=== PATIENT | female | born 1970 | race American Indian/Alaskan Native ===

== ENCOUNTER 2021-04-30 23:57 | Emergency (ER) | payer MEDICARE ==
--- NOTE | 2021-05-01 00:31 | Emergency Department Report ---
ED Psych HPI - General Chief Complaint: Psych Stated Complaint: SUICIDAL TENDENCIES Time Seen by Provider: 05/01/21 00:14 Source: patient, family Mode of arrival: Ambulatory Limitations: No Limitations - History of Present Illness Initial Comments: Chief complaint: "Just kill me. I am suicidal. Just take my heart and give it away." HPI: This is a 50-year-old female with history of schizoaffective disorder bipolar type who presents with suicidal ideation. She states that she wants to in order to be with her mother. She does not take any psychotropic medications. She was brought to the emergency department by a friend. According to electronic medical record, in February, patient was admitted to our geriatric mental health unit. She was prescribed Effexor lithium Vistaril Cogentin. Complaint: suicidal ideation -: days(s) (Several days) Associated Psychiatric Symptoms: suicidal ideation History of same: Yes Quality: constant Improves With: none Worsens With: none Context: not taking psychiatric Associated Symptoms: denies other symptoms Treatments Prior to Arrival: none If Self Harm: admits thoughts of - Related Data Home Medications Medication Instructions Recorded Confirmed Last Taken No Known Home Medications [No 05/01/21 05/01/21 Unknown Reported Home Medications] Allergies Allergy/AdvReac Type Severity Reaction Status Date / Time aspirin Allergy Unknown Verified 05/01/21 17:07 bupropion HCl Allergy Shortness Verified 05/01/21 17:07 [From Wellbutrin] of Breath divalproex sodium Allergy Shortness Verified 05/01/21 17:07 [From Depakote] of Breath doxorubicin Allergy Unknown Verified 05/01/21 17:07 duloxetine HCl Allergy Shortness Verified 05/01/21 17:07 [From Cymbalta] of Breath haloperidol [From Haldol] Allergy Shortness Verified 05/01/21 17:07 of Breath haloperidol lactate Allergy Shortness Verified 05/01/21 17:07 [From Haldol] of Breath hydrocodone Allergy Unknown Verified 05/01/21 17:07 lithium [[place]] Allergy Anaphylaxis Verified 05/01/21 17:07 lorazepam [From Ativan] Allergy Shortness Verified 05/01/21 17:07 of Breath olanzapine [From Zyprexa] Allergy Bleeding Verified 01/02/13 21:25 paroxetine HCl [From Paxil] Allergy Shortness Verified 01/02/13 21:25 of Breath Penicillins Allergy Unknown Unverified 03/03/21 18:07 trazodone Allergy Shortness Verified 01/02/13 21:25 of Breath ED Review of Systems ROS: Stated complaint: SUICIDAL TENDENCIES Other details as noted in HPI Comment: All other systems reviewed and negative Constitutional: denies: chills, fever, malaise Respiratory: denies: cough, shortness of breath Cardiovascular: denies: chest pain Gastrointestinal: denies: abdominal pain, nausea, vomiting Psychiatric: depression, suicidal thoughts ED Past Medical Hx - Past Medical History Previous Medical History?: Yes Hx Diabetes: No Hx Renal Disease: No Hx Arthritis: No Hx Seizures: No Hx Psychiatric Treatment: Yes (Schizoaffective disorder bipolar type) Hx COPD: No Hx Dementia: No Additional medical history: Suicidal attempts - Surgical History Past Surgical History?: Yes Hx Cholecystectomy: No Hx Appendectomy: No Additional Surgical History: "Cancer" - Social History Smoking Status: Never Smoker Substance Use Type: None - Medications Home Medications: Home Medications Medication Instructions Recorded Confirmed Last Taken Type No Known Home Medications [No 05/01/21 05/01/21 Unknown History Reported Home Medications] ED Physical Exam - General Limitations: No Limitations General appearance: alert, in no apparent distress - Head Head exam: Present: atraumatic, normocephalic - Eye Eye exam: Present: normal appearance - ENT ENT exam: Present: mucous membranes moist - Neck Neck exam: Present: normal inspection, full ROM - Respiratory Respiratory exam: Present: normal lung sounds bilaterally. Absent: respiratory distress, wheezes, rales, rhonchi - Cardiovascular Cardiovascular Exam: Present: regular rate, normal rhythm, normal heart sounds. Absent: systolic murmur, diastolic murmur, rubs, gallop - GI/Abdominal GI/Abdominal exam: Present: soft, normal bowel sounds. Absent: distended, tenderness, guarding, rebound - Extremities Exam Extremities exam: Present: normal inspection - Back Exam Back exam: Present: normal inspection - Neurological Exam Neurological exam: Present: alert, oriented X3 - Psychiatric Psychiatric exam: Present: agitated, flat affect, suicidal ideation - Skin Skin exam: Present: warm, dry, intact, normal color. Absent: rash ED Course Vital Signs 05/01/21 05/01/21 05/01/21 00:07 01:17 10:35 Temperature 98.2 F Pulse Rate 61 74 Respiratory 18 18 Rate Blood Pressure 180/98 117/54 Blood Pressure [Right] O2 Sat by Pulse 100 97 Oximetry 05/01/21 05/01/21 10:36 21:12 Temperature 98.1 F 97.3 F L Pulse Rate 110 H 68 Respiratory 18 18 Rate Blood Pressure Blood Pressure 117/54 138/89 [Right] O2 Sat by Pulse 100 99 Oximetry ED Medical Decision Making - Lab Data Result diagrams: 05/01/21 00:37 05/01/21 00:37 - Medical Decision Making This is a 50-year-old female with history of schizoaffective disorder bipolar type who presents with suicidal ideation. Patient is quite agitated. I suspect patient is experiencing manic episode. When asked about plan to kill herself, she is evasive. 1013 form completed. Involuntary hold indicated. Patient presents with poor insight. I am unable to ensure her safety. She is admittedly noncompliant with medication. Blood pressure is elevated. Unclear if this is a new diagnosis for patient. I have ordered valsartan for morning. Patient is medically clear for psychiatric care. I have reviewed all labs including CBC chemistry serum toxicology screen all within normal limits. Han[place]i level 0.1. Suspect medication noncompliance. hCG is negative. Patient is medically clear for psychiatric care. Critical care attestation.: If time is entered above; I have spent that time in minutes in the direct care of this critically ill patient, excluding procedure time. ED Disposition Clinical Impression: Schizoaffective disorder, Homelessness Disposition: 01 HOME / SELF CARE / HOMELESS Is pt being admited?: No Does the pt Need Aspirin: No Condition: Good Additional Instructions: Please follow-up with the outpatient resources that have been provided to the patient. Patient may present herself to a local homeless correction. Recommend follow-up with your primary care doctor within the next week. Recommend follow-up with a psychiatry specialist or mental health specialist within the next week. Please remain compliant with outpatient medications. Please return to the emergency room right away with new pain, worsened pain, migration of pain, projectile vomiting, change in mental status, confusion, inability tolerate liquid feeds, new, worsened or different symptoms not present on the initial emergency room evaluation Referrals: AIMEE LOPEZ [Other] - 3-5 Days [facility] [Outside] - 3-5 Days [facility] [Outside] - 3-5 Days
[2021-05-01 00:53] LABS: Basophils % (Auto) 0.4 % (0.0-1.8); Eosinophils # (Auto) 0.1 K/mm3 (0.0-0.4); Eosinophils % (Auto) 1.8 % (0.0-4.3); Hemoglobin 12.6 gm/dl (10.1-14.3); Lymphocytes # (Auto) 3.2 K/mm3 (1.2-5.4); Lymphocytes % (Auto) 39.2 % (13.4-35.0); Mean Corpuscular HGB Conc 32 % (30-34); Mean Corpuscular Volume 90 fl (79-97); Monocytes # (Auto) 0.7 K/mm3 (0.0-0.8); Monocytes % (Auto) 8.1 % (0.0-7.3); Platelet Count 213 K/mm3 (140-440); Red Blood Count 4.32 M/mm3 (3.65-5.03); Red Cell Distribution Width 15.1 % (13.2-15.2)
[2021-05-01 01:12] LABS: Blood Urea Nitrogen 13 mg/dL (7-17); Calcium 8.6 mg/dL (8.4-10.2); Hemolysis Index 8
[2021-05-01 01:24] LABS: BUN/Creatinine Ratio 19
[2021-05-01 06:08] LABS: Bacteria,Urine 1+ /HPF (Negative); Bilirubin,Urine NEG (Negative); Blood,Urine NEG (Negative); Color,Urine Yellow (Yellow); Hyaline Casts,Urine 1 /LPF; Mucus,Urine FEW /HPF; Protein,Urine <15 mg/dL mg/dL (Negative); Urobilinogen,Urine < 2.0 mg/dL (<2.0)
[2021-05-01 06:13] LABS: Amphetamine Screen,Urine PRESUMPTIVE NEGATIVE; Benzodiazepines Screen,Urine PRESUMPTIVE NEGATIVE; Cannabinoid Screen,Urine PRESUMPTIVE NEGATIVE; Cocaine Screen,Urine PRESUMPTIVE NEGATIVE; Methadone Screen,Urine PRESUMPTIVE NEGATIVE; Opiate Screen,Urine PRESUMPTIVE NEGATIVE
[2021-05-01] MEDS ORDERED: VALSARTAN 40 MG TAB PO SCH (10:00)
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
--- NOTE | 2021-05-01 12:16 | Event Note ---
Date: 05/01/21 The patient was evaluated in the emergency department for symptoms described in the history of present illness. He/she was evaluated in the context of the global COVID-19 pandemic, which necessitated consideration that the patient might be at risk for infection with the virus that causes COVID-19. Institutional protocols and algorithms that pertain to the evaluation of patients at risk for COVID-19 are in a state of rapid change based on information released by regulatory bodies including the CDC and federal and state organizations. These policies and algorithms were followed during the patient's care in the emergency department. Please note that these policies, procedures and recommendations changed on a rapid basis. Laboratory studies, vital signs, nursing documentation, ER documentation, and psychiatric documentation are reviewed and appreciated. Nursing team reports no acute events this morning or concerns. The patient is awake and not in any acute distress. Nursing team endorses no acute concerns this morning. Patient is documented to be not homicidal, not suicidal, alert and oriented x3, and of sound mind. It appears that she is presenting primarily because of her homelessness. Elevated blood pressures reviewed and appreciated. It does not appear to be acutely symptomatic or decompensated at this time. Please reference the [employer] clinical policy on asymptomatic elevated blood pressure/hypertension This patient does not exhibit the ability to care for herself independently. A case management consultation is requested by the psychiatry team, and the patient can be given a list of homeless fdc resources, and the case management team may follow-up this patient to what ever homeless fdc she presents to, or present here with further resources while in the waiting room. The patient does not require further emergency or psychiatric medical care at this time The patient was deemed medically suitable for psychiatric and social disposition during her initial ER evaluation
[2021-05-02 05:23] VITALS: BP 140/79
== END 2021-05-01 13:43 | disposition home or self-care (01) ==
LOC: ED 23:57
DX: F23 Brief psychotic disorder (principal); Z59.00 Homelessness unspecified; Z88.6 Allergy status to analgesic agent; Z88.8 Allergy status to other drugs, medicaments and biological substances; Z88.0 Allergy status to penicillin; Z88.5 Allergy status to narcotic agent
CPT/HCPCS: 36415; 80048; 80178; 80307; 80320; 81001; 84703; 85025; 99283; G0480

== ENCOUNTER 2021-05-01 14:52 | Emergency (ER) | payer MEDICARE ==
--- NOTE | 2021-05-01 16:07 | Emergency Department Report ---
HPI - General Chief Complaint: Psych Time Seen by Provider: 05/01/21 16:01 - HPI HPI: 50-year-old female with history of schizoaffective disorder presents complaining of "homelessness." When I inquire further, the patient states "I want to the right way" she says that she has cancer and will anyways. When asked what kind of cancer she has she speaks gibberish. She denies HI. She denies auditory or visual hallucinations. She denies physical symptoms or complaints of any kind. Further details of the HPI are highly limited due to the patient's current clinical condition. ED Past Medical Hx - Past Medical History Previous Medical History?: Yes Hx Diabetes: No Hx Renal Disease: No Hx Arthritis: No Hx Seizures: No Hx Psychiatric Treatment: Yes (Schizoaffective disorder bipolar type) Hx COPD: No Hx Dementia: No Additional medical history: Suicidal attempts - Surgical History Past Surgical History?: Yes Hx Cholecystectomy: No Hx Appendectomy: No Additional Surgical History: "Cancer" - Social History Smoking Status: Never Smoker Substance Use Type: None - Medications Home Medications: Home Medications Medication Instructions Recorded Confirmed Last Taken Type No Known Home Medications [No 05/01/21 05/03/21 Unknown History Reported Home Medications] ED Review of Systems ROS: Stated complaint: SUICIDAL Other details as noted in HPI Comment: All other systems reviewed and negative Constitutional: denies: chills, fever Eyes: denies: eye pain, vision change ENT: denies: throat pain, congestion Respiratory: denies: cough, shortness of breath Cardiovascular: denies: chest pain, palpitations Gastrointestinal: denies: abdominal pain, nausea, vomiting Genitourinary: denies: dysuria, frequency Musculoskeletal: denies: back pain, joint swelling Skin: denies: rash, lesions Neurological: denies: headache, weakness, numbness Psychiatric: suicidal thoughts. denies: auditory hallucinations, visual hallucinations, homicidal thoughts Physical Exam - Physical Exam Vital Signs: Vital Signs 05/01/21 15:12 Temperature 98.7 F Pulse Rate 62 Respiratory 18 Rate Blood Pressure 163/95 [Right] O2 Sat by Pulse 100 Oximetry Physical Exam: GENERAL: Well developed and well nourished. Disheveled. HEAD: Normocephalic. No obvious signs of trauma. ENT: Moist mucous membranes. EYES: Extraocular movements are intact. Pupils are equal round and reactive to light bilaterally NECK: Supple. Full ROM is intact. Trachea is midline. LUNGS: Nonlabored breathing. Equal chest rise bilaterally. Clear to auscultation bilaterally. CARDIOVASCULAR: Regular rate and rhythm. No murmurs or rubs. VASCULAR: Cap refill < 2 seconds ABDOMEN: Abdomen is slightly distended but soft. There is no significant tenderness, guarding or rebound. SKIN: Skin is warm and dry NEURO: Patient is awake, alert, and oriented. Fine tremor of distal extremities. 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 No focal deficits. Normal motor and sensory exam throughout. Normal speech. MUSCULOSKELETAL: No obvious deformities. No significant tenderness. Normal ROM throughout. BACK/SPINE: No midline tenderness or step-offs of the C/T/L spine. No costovertebral angle tenderness. ED Course Vital Signs 05/01/21 15:12 Temperature 98.7 F Pulse Rate 62 Respiratory 18 Rate Blood Pressure 163/95 [Right] O2 Sat by Pulse 100 Oximetry ED Medical Decision Making - Lab Data Result diagrams: 05/01/21 17:28 05/01/21 17:28 Lab Results 05/01/21 05/01/21 05/01/21 Range/Units 17:13 17:13 17:28 WBC 7.5 (4.5-11.0) K/mm3 RBC 4.58 (3.65-5.03) M/mm3 Hgb 13.0 (10.1-14.3) gm/dl Hct 41.1 (30.3-42.9) % MCV 90 (79-97) fl MCH 29 (28-32) pg MCHC 32 (30-34) % RDW 15.4 H (13.2-15.2) % Plt Count 210 (140-440) K/mm3 Lymph % (Auto) 29.6 (13.4-35.0) % Dickey % (Auto) 6.6 (0.0-7.3) % Eos % (Auto) 1.2 (0.0-4.3) % Baso % (Auto) 1.8 (0.0-1.8) % Lymph # (Auto) 2.2 (1.2-5.4) K/mm3 Dickey # (Auto) 0.5 (0.0-0.8) K/mm3 Eos # (Auto) 0.1 (0.0-0.4) K/mm3 Baso # (Auto) 0.1 (0.0-0.1) K/mm3 Seg Neutrophils % 60.8 (40.0-70.0) % Seg Neutrophils # 4.5 (1.8-7.7) K/mm3 Sodium (137-145) mmol/L Potassium (3.6-5.0) mmol/L Chloride (98-107) mmol/L Carbon Dioxide (22-30) mmol/L Anion Gap mmol/L BUN (7-17) mg/dL Creatinine (0.6-1.2) mg/dL Estimated GFR ml/min BUN/Creatinine Ratio % Glucose (65-100) mg/dL Calcium (8.4-10.2) mg/dL HCG, Qual (Negative) Urine Color Yellow (Yellow) Urine Turbidity Clear (Clear) Urine pH 5.0 (5.0-7.0) Ur Specific [place] 1.023 (1.003-1.030) Urine Protein <15 mg/dl (Negative) mg/dL Urine Glucose (UA) Neg (Negative) mg/dL Urine Ketones Neg (Negative) mg/dL Urine Blood Neg (Negative) Urine Nitrite Neg (Negative) Urine Bilirubin Neg (Negative) Urine Urobilinogen 2.0 (<2.0) mg/dL Ur Leukocyte Esterase Neg (Negative) Urine WBC (Auto) 1.0 (0.0-6.0) /HPF Urine RBC (Auto) < 1.0 (0.0-6.0) /HPF U Epithel Cells (Auto) 1.0 (0-13.0) /HPF Urine Mucus Few /HPF Salicylates (2.8-20.0) mg/dL Urine Opiates Screen Negative Urine Methadone Screen Negative Ur Barbiturates Screen Negative Ur Phencyclidine Scrn Negative Ur Amphetamines Screen Negative U Benzodiazepines Scrn Negative Echo (0.0-1.2) mmol/L Urine Cocaine Screen Negative U Marijuana (THC) Screen Negative Drugs of Abuse Note Disclamer Plasma/Serum Alcohol (0-0.07) % Lab Results 05/01/21 05/01/21 05/01/21 Range/Units 17:13 17:13 17:28 WBC 7.5 (4.5-11.0) K/mm3 RBC 4.58 (3.65-5.03) M/mm3 Hgb 13.0 (10.1-14.3) gm/dl Hct 41.1 (30.3-42.9) % MCV 90 (79-97) fl MCH 29 (28-32) pg MCHC 32 (30-34) % RDW 15.4 H (13.2-15.2) % Plt Count 210 (140-440) K/mm3 Lymph % (Auto) 29.6 (13.4-35.0) % Dickey % (Auto) 6.6 (0.0-7.3) % Eos % (Auto) 1.2 (0.0-4.3) % Baso % (Auto) 1.8 (0.0-1.8) % Lymph # (Auto) 2.2 (1.2-5.4) K/mm3 Dickey # (Auto) 0.5 (0.0-0.8) K/mm3 Eos # (Auto) 0.1 (0.0-0.4) K/mm3 Baso # (Auto) 0.1 (0.0-0.1) K/mm3 Seg Neutrophils % 60.8 (40.0-70.0) % Seg Neutrophils # 4.5 (1.8-7.7) K/mm3 Sodium (137-145) mmol/L Potassium (3.6-5.0) mmol/L Chloride (98-107) mmol/L Carbon Dioxide (22-30) mmol/L Anion Gap mmol/L BUN (7-17) mg/dL Creatinine (0.6-1.2) mg/dL Estimated GFR ml/min BUN/Creatinine Ratio % Glucose (65-100) mg/dL Calcium (8.4-10.2) mg/dL HCG, Qual (Negative) Urine Color Yellow (Yellow) Urine Turbidity Clear (Clear) Urine pH 5.0 (5.0-7.0) Ur Specific [place] 1.023 (1.003-1.030) Urine Protein <15 mg/dl (Negative) mg/dL Urine Glucose (UA) Neg (Negative) mg/dL Urine Ketones Neg (Negative) mg/dL Urine Blood Neg (Negative) Urine Nitrite Neg (Negative) Urine Bilirubin Neg (Negative) Urine Urobilinogen 2.0 (<2.0) mg/dL Ur Leukocyte Esterase Neg (Negative) Urine WBC (Auto) 1.0 (0.0-6.0) /HPF Urine RBC (Auto) < 1.0 (0.0-6.0) /HPF U Epithel Cells (Auto) 1.0 (0-13.0) /HPF Urine Mucus Few /HPF Salicylates (2.8-20.0) mg/dL Urine Opiates Screen Negative Urine Methadone Screen Negative Acetaminophen (10.0-30.0) ug/mL Ur Barbiturates Screen Negative Ur Phencyclidine Scrn Negative Ur Amphetamines Screen Negative U Benzodiazepines Scrn Negative Echo (0.0-1.2) mmol/L Urine Cocaine Screen Negative U Marijuana (THC) Screen Negative Drugs of Abuse Note Disclamer Plasma/Serum Alcohol (0-0.07) % 05/01/21 05/01/21 05/01/21 Range/Units 17:28 17:28 17:28 WBC (4.5-11.0) K/mm3 RBC (3.65-5.03) M/mm3 Hgb (10.1-14.3) gm/dl Hct (30.3-42.9) % MCV (79-97) fl MCH (28-32) pg MCHC (30-34) % RDW (13.2-15.2) % Plt Count (140-440) K/mm3 Lymph % (Auto) (13.4-35.0) % Dickey % (Auto) (0.0-7.3) % Eos % (Auto) (0.0-4.3) % Baso % (Auto) (0.0-1.8) % Lymph # (Auto) (1.2-5.4) K/mm3 Dickey # (Auto) (0.0-0.8) K/mm3 Eos # (Auto) (0.0-0.4) K/mm3 Baso # (Auto) (0.0-0.1) K/mm3 Seg Neutrophils % (40.0-70.0) % Seg Neutrophils # (1.8-7.7) K/mm3 Sodium 142 (137-145) mmol/L Potassium 4.1 (3.6-5.0) mmol/L Chloride 106.6 (98-107) mmol/L Carbon Dioxide 24 (22-30) mmol/L Anion Gap 16 mmol/L BUN 12 (7-17) mg/dL Creatinine 0.8 (0.6-1.2) mg/dL Estimated GFR > 60 ml/min BUN/Creatinine Ratio 15 % Glucose 127 H (65-100) mg/dL Calcium 9.0 (8.4-10.2) mg/dL HCG, Qual (Negative) Urine Color (Yellow) Urine Turbidity (Clear) Urine pH (5.0-7.0) Ur Specific [place] (1.003-1.030) Urine Protein (Negative) mg/dL Urine Glucose (UA) (Negative) mg/dL Urine Ketones (Negative) mg/dL Urine Blood (Negative) Urine Nitrite (Negative) Urine Bilirubin (Negative) Urine Urobilinogen (<2.0) mg/dL Ur Leukocyte Esterase (Negative) Urine WBC (Auto) (0.0-6.0) /HPF Urine RBC (Auto) (0.0-6.0) /HPF U Epithel Cells (Auto) (0-13.0) /HPF Urine Mucus /HPF Salicylates < 0.3 L (2.8-20.0) mg/dL Urine Opiates Screen Urine Methadone Screen Acetaminophen 5.0 L (10.0-30.0) ug/mL Ur Barbiturates Screen Ur Phencyclidine Scrn Ur Amphetamines Screen U Benzodiazepines Scrn Echo 0.1 (0.0-1.2) mmol/L Urine Cocaine Screen U Marijuana (THC) Screen Drugs of Abuse Note Plasma/Serum Alcohol (0-0.07) % 05/01/21 05/01/21 Range/Units 17:28 17:28 WBC (4.5-11.0) K/mm3 RBC (3.65-5.03) M/mm3 Hgb (10.1-14.3) gm/dl Hct (30.3-42.9) % MCV (79-97) fl MCH (28-32) pg MCHC (30-34) % RDW (13.2-15.2) % Plt Count (140-440) K/mm3 Lymph % (Auto) (13.4-35.0) % Dickey % (Auto) (0.0-7.3) % Eos % (Auto) (0.0-4.3) % Baso % (Auto) (0.0-1.8) % Lymph # (Auto) (1.2-5.4) K/mm3 Dickey # (Auto) (0.0-0.8) K/mm3 Eos # (Auto) (0.0-0.4) K/mm3 Baso # (Auto) (0.0-0.1) K/mm3 Seg Neutrophils % (40.0-70.0) % Seg Neutrophils # (1.8-7.7) K/mm3 Sodium (137-145) mmol/L Potassium (3.6-5.0) mmol/L Chloride (98-107) mmol/L Carbon Dioxide (22-30) mmol/L Anion Gap mmol/L BUN (7-17) mg/dL Creatinine (0.6-1.2) mg/dL Estimated GFR ml/min BUN/Creatinine Ratio % Glucose (65-100) mg/dL Calcium (8.4-10.2) mg/dL HCG, Qual Negative (Negative) Urine Color (Yellow) Urine Turbidity (Clear) Urine pH (5.0-7.0) Ur Specific [place] (1.003-1.030) Urine Protein (Negative) mg/dL Urine Glucose (UA) (Negative) mg/dL Urine Ketones (Negative) mg/dL Urine Blood (Negative) Urine Nitrite (Negative) Urine Bilirubin (Negative) Urine Urobilinogen (<2.0) mg/dL Ur Leukocyte Esterase (Negative) Urine WBC (Auto) (0.0-6.0) /HPF Urine RBC (Auto) (0.0-6.0) /HPF U Epithel Cells (Auto) (0-13.0) /HPF Urine Mucus /HPF Salicylates (2.8-20.0) mg/dL Urine Opiates Screen Urine Methadone Screen Acetaminophen (10.0-30.0) ug/mL Ur Barbiturates Screen Ur Phencyclidine Scrn Ur Amphetamines Screen U Benzodiazepines Scrn Echo (0.0-1.2) mmol/L Urine Cocaine Screen U Marijuana (THC) Screen Drugs of Abuse Note Plasma/Serum Alcohol < 0.01 (0-0.07) % - Medical Decision Making 50-year-old female with schizoaffective disorder here with suicidal ideation and acute psychosis. 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 She is back again with SI and signs of psychosis. For this reason I have ordered a 1013 and have signed the form which is on the chart. We will send a full set of medical clearance labs including lithium level despite the fact she has had labs this morning given that she was discharged and has now come back. We will asked that the patient be reevaluated by the psychi atry/mental health team to determine proper disposition. Patient's labs are unchanged from earlier today. She is medically cleared for psychiatric evaluation and placement as deemed necessary. Patient discharged to [facility] Critical care attestation.: If time is entered above; I have spent that time in minutes in the direct care of this critically ill patient, excluding procedure time. ED Disposition Clinical Impression: Homelessness, Schizoaffective disorder, Depression with suicidal ideation Disposition: [address] [place] [address] Is pt being admited?: No Condition: Good Additional Instructions: Please continue current outpatient medications. Please follow-up with your outpatient primary care doctor within the next week. Please follow-up with your outpatient psychiatrist within the next day. Suspect that the patient is malingering for the purposes of secondary gain, housing and intermediate. Please return to the emergency room right away with new pain, worsened pain, migration of pain, projectile vomiting, change in mental status, confusion, inability tolerate liquid feeds, new, worsened or different symptoms not present on the initial emergency room evaluation Referrals: [facility] [Outside] - 3-5 Days [facility] [Outside] - 3-5 Days
[2021-05-01 17:39] LABS: Bilirubin,Urine NEG (Negative); Blood,Urine NEG (Negative); Color,Urine Yellow (Yellow); Mucus,Urine FEW /HPF; Protein,Urine <15 mg/dL mg/dL (Negative); RBC,Urine < 1.0 /HPF (0.0-6.0)
[2021-05-01 17:47] LABS: Amphetamine Screen,Urine Negative; Benzodiazepines Screen,Urine Negative; Cannabinoid Screen,Urine Negative; Cocaine Screen,Urine Negative; Methadone Screen,Urine Negative; Opiate Screen,Urine Negative
[2021-05-01 18:27] LABS: Basophils # (Auto) 0.1 K/mm3 (0.0-0.1); Basophils % (Auto) 1.8 % (0.0-1.8); Eosinophils # (Auto) 0.1 K/mm3 (0.0-0.4); Eosinophils % (Auto) 1.2 % (0.0-4.3); Hematocrit 41.1 % (30.3-42.9); Lymphocytes # (Auto) 2.2 K/mm3 (1.2-5.4); Lymphocytes % (Auto) 29.6 % (13.4-35.0); Mean Corpuscular HGB Conc 32 % (30-34); Mean Corpuscular Volume 90 fl (79-97); Monocytes # (Auto) 0.5 K/mm3 (0.0-0.8); Monocytes % (Auto) 6.6 % (0.0-7.3); Platelet Count 210 K/mm3 (140-440); Red Blood Count 4.58 M/mm3 (3.65-5.03); Red Cell Distribution Width 15.4 % (13.2-15.2)
[2021-05-01 18:38] LABS: BUN/Creatinine Ratio 15; Blood Urea Nitrogen 12 mg/dL (7-17); Hemolysis Index 8
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
[2021-05-02 11:12] VITALS: BP 165/95
[2021-05-02] MEDS ORDERED: diphenhydrAMINE 25 MG CAP PO PRN (11:55)
[2021-05-02] MEDS ORDERED: LORazepam 2 MG/ML VIAL IM PRN (11:55)
[2021-05-02] MEDS ORDERED: HALOPERIDOL LACTATE 5 MG/1 ML INJ IM PRN (11:55)
[2021-05-02] MEDS ORDERED: ZIPRASIDONE MESYLATE 20 MG VIAL IM PRN (11:55)
[2021-05-02] MEDS ORDERED: ACETAMINOPHEN 325 MG TAB PO PRN (11:55)
--- NOTE | 2021-05-02 11:57 | Event Note ---
Date: 05/02/21 The patient was evaluated in the emergency department for symptoms described in the history of present illness. He/she was evaluated in the context of the global COVID-19 pandemic, which necessitated consideration that the patient might be at risk for infection with the virus that causes COVID-19. Institutional protocols and algorithms that pertain to the evaluation of patients at risk for COVID-19 are in a state of rapid change based on information released by regulatory bodies including the CDC and federal and state organizations. These policies and algorithms were followed during the patient's care in the emergency department. Please note that these policies, procedures and recommendations changed on a rapid basis. Laboratory studies, vital signs, nursing documentation, ER documentation, and psychiatric documentation are reviewed and appreciated. Nursing team reports no acute events this morning or concerns. The patient is awake and ambulating and does not appear to be in any acute distress. The patient denies physical pain to myself. The patient was deemed medically suitable for psychiatric disposition and placement during her initial ER evaluation. The patient continues to remain medically suitable for psychiatric placement and disposition. sHe is currently pending psychiatric placement. Of note, both today and yesterday, this patient has presented as alert and oriented x3, complaining of homelessness. Patient is patient on involuntary psychiatric admission may serve to reinforce maladaptive coping mechanisms and behaviors, such as presented to the emergency room for the purposes of seeking detention and food, when faced with difficult and adverse situations. However, I will defer to the psychiatric team to further delineate this patients report of psychiatric symptoms versus malingering. Vital Signs 05/01/21 05/01/21 05/02/21 15:12 16:19 05:43 Temperature 98.7 F Pulse Rate 62 Respiratory 18 16 Rate Blood Pressure 163/95 [Right] O2 Sat by Pulse 100 100 100 Oximetry 05/02/21 11:11 Temperature 98.2 F Pulse Rate 70 Respiratory 20 Rate Blood Pressure 165/95 [Right] O2 Sat by Pulse 98 Oximetry Lab Results 05/01/21 05/01/21 05/01/21 Range/Units 17:13 17:13 17:28 WBC 7.5 (4.5-11.0) K/mm3 RBC 4.58 (3.65-5.03) M/mm3 Hgb 13.0 (10.1-14.3) gm/dl Hct 41.1 (30.3-42.9) % MCV 90 (79-97) fl MCH 29 (28-32) pg MCHC 32 (30-34) % RDW 15.4 H (13.2-15.2) % Plt Count 210 (140-440) K/mm3 Lymph % (Auto) 29.6 (13.4-35.0) % [place] % (Auto) 6.6 (0.0-7.3) % Eos % (Auto) 1.2 (0.0-4.3) % Baso % (Auto) 1.8 (0.0-1.8) % Lymph # (Auto) 2.2 (1.2-5.4) K/mm3 [place] # (Auto) 0.5 (0.0-0.8) K/mm3 Eos # (Auto) 0.1 (0.0-0.4) K/mm3 Baso # (Auto) 0.1 (0.0-0.1) K/mm3 Seg Neutrophils % 60.8 (40.0-70.0) % Seg Neutrophils # 4.5 (1.8-7.7) K/mm3 Sodium (137-145) mmol/L Potassium (3.6-5.0) mmol/L Chloride (98-107) mmol/L Carbon Dioxide (22-30) mmol/L Anion Gap mmol/L BUN (7-17) mg/dL Creatinine (0.6-1.2) mg/dL Estimated GFR ml/min BUN/Creatinine Ratio % Glucose (65-100) mg/dL Calcium (8.4-10.2) mg/dL HCG, Qual (Negative) Urine Color Yellow (Yellow) Urine Turbidity Clear (Clear) Urine pH 5.0 (5.0-7.0) Ur Specific [place] 1.023 (1.003-1.030) Urine Protein <15 mg/dl (Negative) mg/dL Urine Glucose (UA) Neg (Negative) mg/dL Urine Ketones Neg (Negative) mg/dL Urine Blood Neg (Negative) Urine Nitrite Neg (Negative) Urine Bilirubin Neg (Negative) Urine Urobilinogen 2.0 (<2.0) mg/dL Ur Leukocyte Esterase Neg (Negative) Urine WBC (Auto) 1.0 (0.0-6.0) /HPF Urine RBC (Auto) < 1.0 (0.0-6.0) /HPF U Epithel Cells (Auto) 1.0 (0-13.0) /HPF Urine Mucus Few /HPF Salicylates (2.8-20.0) mg/dL Urine Opiates Screen Negative Urine Methadone Screen Negative Acetaminophen (10.0-30.0) ug/mL Ur Barbiturates Screen Negative Ur Phencyclidine Scrn Negative Ur Amphetamines Screen Negative U Benzodiazepines Scrn Negative [place] (0.0-1.2) mmol/L Urine Cocaine Screen Negative U Marijuana (THC) Screen Negative Drugs of Abuse Note Disclamer Plasma/Serum Alcohol (0-0.07) % SARS-CoV-2 (PCR) (Negative) 05/01/21 05/01/21 05/01/21 Range/Units 17:28 17:28 17:28 WBC (4.5-11.0) K/mm3 RBC (3.65-5.03) M/mm3 Hgb (10.1-14.3) gm/dl Hct (30.3-42.9) % MCV (79-97) fl MCH (28-32) pg MCHC (30-34) % RDW (13.2-15.2) % Plt Count (140-440) K/mm3 Lymph % (Auto) (13.4-35.0) % [place] % (Auto) (0.0-7.3) % Eos % (Auto) (0.0-4.3) % Baso % (Auto) (0.0-1.8) % Lymph # (Auto) (1.2-5.4) K/mm3 [place] # (Auto) (0.0-0.8) K/mm3 Eos # (Auto) (0.0-0.4) K/mm3 Baso # (Auto) (0.0-0.1) K/mm3 Seg Neutrophils % (40.0-70.0) % Seg Neutrophils # (1.8-7.7) K/mm3 Sodium 142 (137-145) mmol/L Potassium 4.1 (3.6-5.0) mmol/L Chloride 106.6 (98-107) mmol/L Carbon Dioxide 24 (22-30) mmol/L Anion Gap 16 mmol/L BUN 12 (7-17) mg/dL Creatinine 0.8 (0.6-1.2) mg/dL Estimated GFR > 60 ml/min BUN/Creatinine Ratio 15 % Glucose 127 H (65-100) mg/dL Calcium 9.0 (8.4-10.2) mg/dL HCG, Qual (Negative) Urine Color (Yellow) Urine Turbidity (Clear) Urine pH (5.0-7.0) Ur Specific [place] (1.003-1.030) Urine Protein (Negative) mg/dL Urine Glucose (UA) (Negative) mg/dL Urine Ketones (Negative) mg/dL Urine Blood (Negative) Urine Nitrite (Negative) Urine Bilirubin (Negative) Urine Urobilinogen (<2.0) mg/dL Ur Leukocyte Esterase (Negative) Urine WBC (Auto) (0.0-6.0) /HPF Urine RBC (Auto) (0.0-6.0) /HPF U Epithel Cells (Auto) (0-13.0) /HPF Urine Mucus /HPF Salicylates < 0.3 L (2.8-20.0) mg/dL Urine Opiates Screen Urine Methadone Screen Acetaminophen 5.0 L (10.0-30.0) ug/mL Ur Barbiturates Screen Ur Phencyclidine Scrn Ur Amphetamines Screen U Benzodiazepines Scrn [place] 0.1 (0.0-1.2) mmol/L Urine Cocaine Screen U Marijuana (THC) Screen Drugs of Abuse Note Plasma/Serum Alcohol (0-0.07) % SARS-CoV-2 (PCR) (Negative) 05/01/21 05/01/21 05/02/21 Range/Units 17:28 17:28 Unknown WBC (4.5-11.0) K/mm3 RBC (3.65-5.03) M/mm3 Hgb (10.1-14.3) gm/dl Hct (30.3-42.9) % MCV (79-97) fl MCH (28-32) pg MCHC (30-34) % RDW (13.2-15.2) % Plt Count (140-440) K/mm3 Lymph % (Auto) (13.4-35.0) % [place] % (Auto) (0.0-7.3) % Eos % (Auto) (0.0-4.3) % Baso % (Auto) (0.0-1.8) % Lymph # (Auto) (1.2-5.4) K/mm3 [place] # (Auto) (0.0-0.8) K/mm3 Eos # (Auto) (0.0-0.4) K/mm3 Baso # (Auto) (0.0-0.1) K/mm3 Seg Neutrophils % (40.0-70.0) % Seg Neutrophils # (1.8-7.7) K/mm3 Sodium (137-145) mmol/L Potassium (3.6-5.0) mmol/L Chloride (98-107) mmol/L Carbon Dioxide (22-30) mmol/L Anion Gap mmol/L BUN (7-17) mg/dL Creatinine (0.6-1.2) mg/dL Estimated GFR ml/min BUN/Creatinine Ratio % Glucose (65-100) mg/dL Calcium (8.4-10.2) mg/dL HCG, Qual Negative (Negative) Urine Color (Yellow) Urine Turbidity (Clear) Urine pH (5.0-7.0) Ur Specific [place] (1.003-1.030) Urine Protein (Negative) mg/dL Urine Glucose (UA) (Negative) mg/dL Urine Ketones (Negative) mg/dL Urine Blood (Negative) Urine Nitrite (Negative) Urine Bilirubin (Negative) Urine Urobilinogen (<2.0) mg/dL Ur Leukocyte Esterase (Negative) Urine WBC (Auto) (0.0-6.0) /HPF Urine RBC (Auto) (0.0-6.0) /HPF U Epithel Cells (Auto) (0-13.0) /HPF Urine Mucus /HPF Salicylates (2.8-20.0) mg/dL Urine Opiates Screen Urine Methadone Screen Acetaminophen (10.0-30.0) ug/mL Ur Barbiturates Screen Ur Phencyclidine Scrn Ur Amphetamines Screen U Benzodiazepines Scrn [place] (0.0-1.2) mmol/L Urine Cocaine Screen U Marijuana (THC) Screen Drugs of Abuse Note Plasma/Serum Alcohol < 0.01 (0-0.07) % SARS-CoV-2 (PCR) Negative (Negative)
== END 2021-05-02 20:55 ==
LOC: ED 14:52
DX: R45.851 Suicidal ideations (principal); F20.9 Schizophrenia, unspecified; F31.9 Bipolar disorder, unspecified; Z59.00 Homelessness unspecified; Z88.6 Allergy status to analgesic agent; Z88.8 Allergy status to other drugs, medicaments and biological substances; Z79.899 Other long term (current) drug therapy
CPT/HCPCS: 36415; 80048; 80178; 80307; 81001; 84703; 85025; 96372; 99284; J3486; U0003; 80320; G0480

== ENCOUNTER 2021-05-02 15:47 | Inpatient (IN) | payer MEDICARE ==
[2021-05-03] MEDS ORDERED: LORazepam 2 MG/ML VIAL IM PRN (07:42)
[2021-05-03] MEDS ORDERED: WATER FOR INJ Sterile (PF) 10 ML ONE (07:50)
[2021-05-03] MEDS ORDERED: ZIPRASIDONE MESYLATE 20 MG VIAL IM PRN ×2 (08:00→08:30)
[2021-05-03] MEDS ORDERED: diphenhydrAMINE 50 MG/ML VIAL IM PRN (08:00)
[2021-05-03 08:56] LABS: Basophils % (Auto) 0.2 % (0.0-1.8); Eosinophils # (Auto) 0.1 K/mm3 (0.0-0.4); Hematocrit 40.3 % (30.3-42.9); Hemoglobin 13.2 gm/dl (10.1-14.3); Lymphocytes # (Auto) 3.5 K/mm3 (1.2-5.4); Lymphocytes % (Auto) 42.4 % (13.4-35.0); Mean Corpuscular HGB Conc 33 % (30-34); Mean Corpuscular Volume 90 fl (79-97); Monocytes # (Auto) 0.6 K/mm3 (0.0-0.8); Monocytes % (Auto) 7.4 % (0.0-7.3); Platelet Count 238 K/mm3 (140-440); Red Blood Count 4.47 M/mm3 (3.65-5.03); Red Cell Distribution Width 14.9 % (13.2-15.2)
[2021-05-03 09:24] LABS: Alanine Aminotransferase 11 units/L (7-56); BUN/Creatinine Ratio 14; Blood Urea Nitrogen 13 mg/dL (7-17); Calcium 9.5 mg/dL (8.4-10.2); Chol/HDL Ratio 3.07 %; HDL Cholesterol 63 mg/dL (40-59); Hemolysis Index 1; LDL Cholesterol,Direct 123 mg/dL (50-130)
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
[2021-05-03 12:38] LABS: Hepatitis B Surface Antigen Non-Reactive (Negative); Hepatitis C Virus Antibody Non-Reactive (NonReactive)
--- NOTE | 2021-05-03 12:48 | Consultation ---
History of Present Illness - Reason for Consult Consult date: 05/03/21 Requesting physician: ANGELICA THAKUR - History of Present Illness 50-year-old female with history of morbid obesity homelessness presenting to our facility as a psychiatric patient for suicidal ideation. Patient states that she had no plan for executing her suicide per reports. Internal medicine service consulted for medical management. On my encounter patient was minimally communicative. She was following commands but did not volunteer much history. She only stated that she was homeless and that she was in a "bad place right now". When questioned about her medical history the patient did not volunteer any information. When questioned about any acute symptomology the patient did not respond to questioning. PMHx: morbid obesity PSHx: unable to obtain FHx: unable to obtain SHx: unable to obtain Tobacco use- unable to obtain ETOH Use-unable to obtain Recreational Drug Use-unable to obtain Occupation- homeless Past History Past Medical History: other (obese) Medications and Allergies Allergies Allergy/AdvReac Type Severity Reaction Status Date / Time aspirin Allergy Unknown Verified 05/01/21 17:07 bupropion HCl Allergy Shortness Verified 05/01/21 17:07 [From Wellbutrin] of Breath divalproex sodium Allergy Shortness Verified 05/01/21 17:07 [From Depakote] of Breath doxorubicin Allergy Unknown Verified 05/01/21 17:07 duloxetine HCl Allergy Shortness Verified 05/01/21 17:07 [From Cymbalta] of Breath haloperidol [From Haldol] Allergy Shortness Verified 05/01/21 17:07 of Breath haloperidol lactate Allergy Shortness Verified 05/01/21 17:07 [From Haldol] of Breath hydrocodone Allergy Unknown Verified 05/01/21 17:07 lithium [[place]] Allergy Anaphylaxis Verified 05/01/21 17:07 lorazepam [From Ativan] Allergy Shortness Verified 05/01/21 17:07 of Breath olanzapine [From Zyprexa] Allergy Bleeding Verified 01/02/13 21:25 paroxetine HCl [From Paxil] Allergy Shortness Verified 01/02/13 21:25 of Breath Penicillins Allergy Unknown Verified 05/02/21 19:32 trazodone Allergy Shortness Verified 01/02/13 21:25 of Breath Home Medications Medication Instructions Recorded Confirmed Last Taken Type No Known Home Medications [No 05/01/21 05/03/21 Unknown History Reported Home Medications] Active Meds: Active Medications Diphenhydramine HCl (Diphenhydramine 50 Mg/Ml Vial) 50 mg IM Q6H PRN PRN Reason: agitation Last Admin: 05/03/21 08:14 Dose: 50 mg Ziprasidone (Ziprasidone Mesylate 20 Mg Vial) 20 mg IM Q12H PRN PRN Reason: Agitation Last Admin: 05/03/21 08:13 Dose: 20 mg Review of Systems ROS unobtainable: due to mental status (not willing to participate) Exam - Physical Exam Narrative exam: Physical Exam: VITAL SIGNS: Reviewed. GENERAL: The patient appears normally developed, Vital signs as documented. BMI 48.6. minimally cooperative HEAD: No signs of head trauma. EYES: Pupils are equal. Extraocular motions intact. EARS: Hearing grossly intact. MOUTH: Oropharynx is normal. NECK: No adenopathy, no JVD. CHEST: Chest with clear breath sounds bilaterally. No wheezes, rales, or rhonchi. CARDIAC: Regular rate and rhythm. S1 and S2, without murmurs, gallops, or rubs. VASCULAR: No Edema. Peripheral pulses normal and equal in all extremities. ABDOMEN: Soft, non tender and non distended. No rebound or guarding, and no masses palpated. Bowel Sounds normal. MUSCULOSKELETAL: Good range of motion of all major joints. Extremities without clubbing, cyanosis or edema. NEUROLOGIC EXAM: Alert and but does not participate in history or orientation questions PSYCHIATRIC: appears severely depressed SKIN: detail exam as documented in skin assessment - Constitutional Vitals: Temp Pulse Resp BP Pulse Ox 98.7 F 88 18 130/76 97 05/03/21 10:00 05/03/21 10:00 05/03/21 10:00 05/03/21 10:00 05/03/21 10:00 Results - Labs CBC & Chem 7: 05/03/21 07:56 05/03/21 07:56 Labs: Abnormal lab results 05/03/21 05/03/21 Range/Units 07:56 07:56 Lymph % (Auto) 42.4 H (13.4-35.0) % [place] % (Auto) 7.4 H (0.0-7.3) % Carbon Dioxide 21 L (22-30) mmol/L Total Bilirubin 1.90 H (0.1-1.2) mg/dL HDL Cholesterol 63 H (40-59) mg/dL Assessment and Plan Assessment #Suicidal ideation #Schizoaffective disorder, bipolar type #Major depressive disorder #Morbid obesity-behavioral health counseling regarding healthy diet and exercise, +15 minutes #Advance care planning Disease education conducted, care plan discussed, diagnoses discussed, prognosis discussed, patient is full code, patient acknowledges understanding and agree with care plan, +30 minutes. Plan -Psychiatric medication management per inpatient psych service -Monitor blood pressure daily -Accu-Cheks ACHS -follow-up lab work ordered on admission -Monitor QTC Patient does not participate on my exam. Hopefully with psychiatric stabilization will be able to have more thorough discussion regarding her medical problems. Internal medicine service will continue to follow
[2021-05-03 21:21] VITALS: BP 126/93
[2021-05-03] MEDS: ZIPRASIDONE 20 MG CAP PO SCH (21:28)
--- NOTE | 2021-05-04 08:43 | Progress Note ---
Assessment and Plan Assessment and plan: Assessment #Suicidal ideation #Schizoaffective disorder, bipolar type #Major depressive disorder #Morbid obesity-behavioral health counseling regarding healthy diet and exercise, +15 minutes #Advance care planning Disease education conducted, care plan discussed, diagnoses discussed, prognosis discussed, patient is full code, patient acknowledges understanding and agree with care plan, +30 minutes. Plan -Psychiatric medication management per inpatient psych service, would recommend avoiding olanzipine if being considered for antipsych agent given patients metabolic status -Monitor blood pressure daily -A1c is 5.2, no indication for therapy. Can d/c accuchecks if desired - LDL elevated, given ascvd of 1.6% , no indication for statin therapy. encourage lifestyle modification -Monitor QTC Patient does not participate on my exam. Hopefully with psychiatric stabilization will be able to have more thorough discussion regarding her medical problems. Patient being d/c. IM service will sign off. History Interval history: No complaints. Patient being d/c today. Hospitalist Physical - Physical exam Narrative exam: Physical Exam: VITAL SIGNS: Reviewed. GENERAL: The patient appears normally developed, Vital signs as documented. BMI 48.6. minimally cooperative HEAD: No signs of head trauma. EYES: Pupils are equal. Extraocular motions intact. EARS: Hearing grossly intact. MOUTH: Oropharynx is normal. NECK: No adenopathy, no JVD. CHEST: Chest with clear breath sounds bilaterally. No wheezes, rales, or rhonchi. CARDIAC: Regular rate and rhythm. S1 and S2, without murmurs, gallops, or rubs. VASCULAR: No Edema. Peripheral pulses normal and equal in all extremities. ABDOMEN: Soft, non tender and non distended. No rebound or guarding, and no masses palpated. Bowel Sounds normal. MUSCULOSKELETAL: Good range of motion of all major joints. Extremities without clubbing, cyanosis or edema. NEUROLOGIC EXAM: Alert and but does not participate in history or orientation questions PSYCHIATRIC: appears severely depressed SKIN: detail exam as documented in skin assessment - Constitutional Vitals: Temp Pulse Resp BP Pulse Ox 99.1 F 86 16 126/93 100 05/03/21 21:19 05/03/21 21:19 05/03/21 21:19 05/03/21 21:19 05/03/21 21:19 Results - Labs CBC & Chem 7: 05/03/21 07:56 05/03/21 07:56 Labs: Laboratory Last Values WBC 8.3 K/mm3 (4.5-11.0) 05/03/21 07:56 RBC 4.47 M/mm3 (3.65-5.03) 05/03/21 07:56 Hgb 13.2 gm/dl (10.1-14.3) 05/03/21 07:56 Hct 40.3 % (30.3-42.9) 05/03/21 07:56 MCV 90 fl (79-97) 05/03/21 07:56 MCH 30 pg (28-32) 05/03/21 07:56 MCHC 33 % (30-34) 05/03/21 07:56 RDW 14.9 % (13.2-15.2) 05/03/21 07:56 Plt Count 238 K/mm3 (140-440) 05/03/21 07:56 Lymph % (Auto) 42.4 % (13.4-35.0) H 05/03/21 07:56 [place] % (Auto) 7.4 % (0.0-7.3) H 05/03/21 07:56 Eos % (Auto) 1.0 % (0.0-4.3) 05/03/21 07:56 Baso % (Auto) 0.2 % (0.0-1.8) 05/03/21 07:56 Lymph # (Auto) 3.5 K/mm3 (1.2-5.4) 05/03/21 07:56 [place] # (Auto) 0.6 K/mm3 (0.0-0.8) 05/03/21 07:56 Eos # (Auto) 0.1 K/mm3 (0.0-0.4) 05/03/21 07:56 Baso # (Auto) 0.0 K/mm3 (0.0-0.1) 05/03/21 07:56 Seg Neutrophils % 49.0 % (40.0-70.0) 05/03/21 07:56 Seg Neutrophils # 4.0 K/mm3 (1.8-7.7) 05/03/21 07:56 Sodium 142 mmol/L (137-145) 05/03/21 07:56 Potassium 3.7 mmol/L (3.6-5.0) 05/03/21 07:56 Chloride 106.2 mmol/L (98-107) 05/03/21 07:56 Carbon Dioxide 21 mmol/L (22-30) L 05/03/21 07:56 Anion Gap 19 mmol/L 05/03/21 07:56 BUN 13 mg/dL (7-17) 05/03/21 07:56 Creatinine 0.9 mg/dL (0.6-1.2) 05/03/21 07:56 Estimated GFR > 60 ml/min 05/03/21 07:56 BUN/Creatinine Ratio 14 % 05/03/21 07:56 Glucose 100 mg/dL (65-100) 05/03/21 07:56 POC Glucose 157 mg/dL (70-105) H 05/03/21 16:34 Hemoglobin A1c 5.2 % (4-6) 05/03/21 07:56 Calcium 9.5 mg/dL (8.4-10.2) 05/03/21 07:56 Total Bilirubin 1.90 mg/dL (0.1-1.2) H 05/03/21 07:56 AST 12 units/L (5-40) 05/03/21 07:56 ALT 11 units/L (7-56) 05/03/21 07:56 Alkaline Phosphatase 75 units/L (35-129) 05/03/21 07:56 Total Protein 7.5 g/dL (6.3-8.2) 05/03/21 07:56 Albumin 4.0 g/dL (3.9-5) 05/03/21 07:56 Albumin/Globulin Ratio 1.1 % 05/03/21 07:56 Triglycerides 73 mg/dL (2-149) 05/03/21 07:56 Cholesterol 194 mg/dL (50-199) 05/03/21 07:56 LDL Cholesterol Direct 123 mg/dL (50-130) 05/03/21 07:56 HDL Cholesterol 63 mg/dL (40-59) H 05/03/21 07:56 Cholesterol/HDL Ratio 3.07 % 05/03/21 07:56 TSH 0.748 mlU/mL (0.270-4.200) 05/03/21 07:56 Hepatitis A IgM Ab Non-reactive (NonReactive) 05/03/21 07:56 Hep Bs Antigen Non-reactive (Negative) 05/03/21 07:56 Hep B Core IgM Ab Non-reactive (NonReactive) 05/03/21 07:56 Hepatitis C Antibody Non-reactive (NonReactive) 05/03/21 07:56 [place]/IV: Voiding Method Toilet Active Medications - Current Medications Current Medications: Generic Name Dose Route Start Last Admin Trade Name Freq PRN Reason Stop Dose Admin Diphenhydramine HCl 50 mg 05/03/21 08:00 05/03/21 08:14 Diphenhydramine 50 Mg/Ml Vial IM 50 mg Q6H PRN Administration agitation Ziprasidone 20 mg 05/03/21 08:30 05/03/21 08:13 Ziprasidone Mesylate 20 Mg Vial IM 20 mg Q12H PRN Administration Agitation Ziprasidone 20 mg 05/03/21 22:00 05/03/21 21:28 Ziprasidone 20 Mg Cap PO Not Given BID SAWYER
[2021-05-04] MEDS: ZIPRASIDONE 20 MG CAP PO SCH (09:36)
--- NOTE | 2021-05-04 10:45 | Discharge Summary ---
Providers - Providers Date of Admission: 05/02/21 22:01 Attending physician: ANGELICA THAKUR MD 05/02/21 20:18 Consult to Physician [CONS] Routine Comment: Consulting Provider: JAMES TRAORE Physician Instructions: Reason For Exam: manage existing medical conditions Primary care physician: LIP CUTTER Hospitalization Reason for admission: suicidal ideation Admitting Diagnosis: F25.0 - SCHIZOAFFECTIVE DISORDER, BIPOLAR TYPE Disposition: 30 STILL A PATIENT Allergies/Adverse Reactions: Allergies aspirin Allergy (Verified 05/01/21 17:07) Unknown bupropion HCl [From Wellbutrin] Allergy (Verified 05/01/21 17:07) Shortness of Breath divalproex sodium [From Depakote] Allergy (Verified 05/01/21 17:07) Shortness of Breath doxorubicin Allergy (Verified 05/01/21 17:07) Unknown Affects her hert duloxetine HCl [From Cymbalta] Allergy (Verified 05/01/21 17:07) Shortness of Breath haloperidol [From Haldol] Allergy (Verified 05/01/21 17:07) Shortness of Breath haloperidol lactate [From Haldol] Allergy (Verified 05/01/21 17:07) Shortness of Breath hydrocodone Allergy (Verified 05/01/21 17:07) Unknown lithium [[place]] Allergy (Verified 05/01/21 17:07) Anaphylaxis lorazepam [From Ativan] Allergy (Verified 05/01/21 17:07) Shortness of Breath olanzapine [From Zyprexa] Allergy (Verified 01/02/13 21:25) Bleeding paroxetine HCl [From Paxil] Allergy (Verified 01/02/13 21:25) Shortness of Breath Penicillins Allergy (Verified 05/02/21 19:32) Unknown trazodone Allergy (Verified 01/02/13 21:25) Shortness of Breath Vital Signs: Last Vital Signs Temp 99.1 F 05/03/21 21:19 Pulse 86 05/03/21 21:19 Resp 16 05/03/21 21:19 BP 126/93 05/03/21 21:19 Pulse Ox 100 05/03/21 21:19 Last Lab: Laboratory Last Values WBC 8.3 K/mm3 (4.5-11.0) 05/03/21 07:56 RBC 4.47 M/mm3 (3.65-5.03) 05/03/21 07:56 Hgb 13.2 gm/dl (10.1-14.3) 05/03/21 07:56 Hct 40.3 % (30.3-42.9) 05/03/21 07:56 MCV 90 fl (79-97) 05/03/21 07:56 MCH 30 pg (28-32) 05/03/21 07:56 MCHC 33 % (30-34) 05/03/21 07:56 RDW 14.9 % (13.2-15.2) 05/03/21 07:56 Plt Count 238 K/mm3 (140-440) 05/03/21 07:56 Lymph % (Auto) 42.4 % (13.4-35.0) H 05/03/21 07:56 [place] % (Auto) 7.4 % (0.0-7.3) H 05/03/21 07:56 Eos % (Auto) 1.0 % (0.0-4.3) 05/03/21 07:56 Baso % (Auto) 0.2 % (0.0-1.8) 05/03/21 07:56 Lymph # (Auto) 3.5 K/mm3 (1.2-5.4) 05/03/21 07:56 [place] # (Auto) 0.6 K/mm3 (0.0-0.8) 05/03/21 07:56 Eos # (Auto) 0.1 K/mm3 (0.0-0.4) 05/03/21 07:56 Baso # (Auto) 0.0 K/mm3 (0.0-0.1) 05/03/21 07:56 Seg Neutrophils % 49.0 % (40.0-70.0) 05/03/21 07:56 Seg Neutrophils # 4.0 K/mm3 (1.8-7.7) 05/03/21 07:56 Sodium 142 mmol/L (137-145) 05/03/21 07:56 Potassium 3.7 mmol/L (3.6-5.0) 05/03/21 07:56 Chloride 106.2 mmol/L (98-107) 05/03/21 07:56 Carbon Dioxide 21 mmol/L (22-30) L 05/03/21 07:56 Anion Gap 19 mmol/L 05/03/21 07:56 BUN 13 mg/dL (7-17) 05/03/21 07:56 Creatinine 0.9 mg/dL (0.6-1.2) 05/03/21 07:56 Estimated GFR > 60 ml/min 05/03/21 07:56 BUN/Creatinine Ratio 14 % 05/03/21 07:56 Glucose 100 mg/dL (65-100) 05/03/21 07:56 POC Glucose 157 mg/dL (70-105) H 05/03/21 16:34 Hemoglobin A1c 5.2 % (4-6) 05/03/21 07:56 Calcium 9.5 mg/dL (8.4-10.2) 05/03/21 07:56 Total Bilirubin 1.90 mg/dL (0.1-1.2) H 05/03/21 07:56 AST 12 units/L (5-40) 05/03/21 07:56 ALT 11 units/L (7-56) 05/03/21 07:56 Alkaline Phosphatase 75 units/L (35-129) 05/03/21 07:56 Total Protein 7.5 g/dL (6.3-8.2) 05/03/21 07:56 Albumin 4.0 g/dL (3.9-5) 05/03/21 07:56 Albumin/Globulin Ratio 1.1 % 05/03/21 07:56 Triglycerides 73 mg/dL (2-149) 05/03/21 07:56 Cholesterol 194 mg/dL (50-199) 05/03/21 07:56 LDL Cholesterol Direct 123 mg/dL (50-130) 05/03/21 07:56 HDL Cholesterol 63 mg/dL (40-59) H 05/03/21 07:56 Cholesterol/HDL Ratio 3.07 % 05/03/21 07:56 TSH 0.748 mlU/mL (0.270-4.200) 05/03/21 07:56 Hepatitis A IgM Ab Non-reactive (NonReactive) 05/03/21 07:56 Hep Bs Antigen Non-reactive (Negative) 05/03/21 07:56 Hep B Core IgM Ab Non-reactive (NonReactive) 05/03/21 07:56 Hepatitis C Antibody Non-reactive (NonReactive) 05/03/21 07:56 Core Measure Documentation - Palliative Care Palliative Care/ Comfort Measures: Not Applicable Exam - Constitutional Vitals: Temp Pulse Resp BP Pulse Ox 99.1 F 86 16 126/93 100 05/03/21 21:19 05/03/21 21:19 05/03/21 21:19 05/03/21 21:19 05/03/21 21:19 Plan Follow up with: PRIMARY CAREMD [Primary Care Provider] - 7 Days
== END 2021-05-04 14:25 | disposition home or self-care (01) | DRG 885 ==
LOC: UNDOADMIN 15:47 → 3A 15:47 → 5A 22:01
PROVIDERS: ADMIT Psychiatry & Neurology Psychiatry; ATTEND Psychiatry & Neurology Psychiatry
DX: F25.0 Schizoaffective disorder, bipolar type (principal); Z68.42 Body mass index [BMI] 45.0-49.9, adult; R45.851 Suicidal ideations; Z88.6 Allergy status to analgesic agent; Z88.8 Allergy status to other drugs, medicaments and biological substances; E66.01 Morbid (severe) obesity due to excess calories; Z59.00 Homelessness unspecified
CPT/HCPCS: 36415; 80048; 80053; 80061; 80074; 80178; 80307; 80320; 81001; 82962; 83036; 84443; 84703; 85025; 96372; 99284; G0378; G0480; J1200; J3486; U0003